=== PATIENT | female | born 1950 | race Caucasian/White ===

== ENCOUNTER → 2021-07-10 | Outpatient (CLI) | payer MEDICARE | LOC: CARD 09:34 | PROVIDERS: ATTEND Family Medicine | DX: I73.9 Peripheral vascular disease, unspecified (principal); I87.2 Venous insufficiency (chronic) (peripheral); S81.801A Unspecified open wound, right lower leg, initial encounter | CPT/HCPCS: 93922; 93925; 93970 ==

== ENCOUNTER 2021-07-19 08:54 | Outpatient (RCR) | payer MEDICARE ==
[~2021-07-19 08:54] MED LIST: LIDOCAINE 2% /EPINEPHRINE 20 ML SDV INJ ONE; LIDOCAINE/PRILOCAINE 2.5-2.5% KIT ONE
== END 2021-07-25 ==
LOC: WCC 08:54
PROVIDERS: ATTEND Family Medicine
DX: I87.312 Chronic venous hypertension (idiopathic) with ulcer of left lower extremity (principal); E11.9 Type 2 diabetes mellitus without complications; L97.821 Non-pressure chronic ulcer of other part of left lower leg limited to breakdown of skin; S81.801A Unspecified open wound, right lower leg, initial encounter; R60.0 Localized edema; I87.2 Venous insufficiency (chronic) (peripheral); N17.9 Acute kidney failure, unspecified; I10 Essential (primary) hypertension; J44.9 Chronic obstructive pulmonary disease, unspecified; E78.5 Hyperlipidemia, unspecified; K42.0 Umbilical hernia with obstruction, without gangrene; B95.1 Streptococcus, group B, as the cause of diseases classified elsewhere; E03.9 Hypothyroidism, unspecified; M13.80 Other specified arthritis, unspecified site
CPT/HCPCS: 11042 ×4; 11045; 87071; 87075; 87205; 99204; 99213 ×3; J2001

== ENCOUNTER 2021-08-02 08:52 | Outpatient (RCR) | payer MEDICARE | END 2021-08-24 | LOC: WCC 08:52 | PROVIDERS: ATTEND Family Medicine | DX: E11.9 Type 2 diabetes mellitus without complications (principal); L97.821 Non-pressure chronic ulcer of other part of left lower leg limited to breakdown of skin; S81.801A Unspecified open wound, right lower leg, initial encounter; I87.2 Venous insufficiency (chronic) (peripheral); I70.248 Atherosclerosis of native arteries of left leg with ulceration of other part of lower leg; R60.0 Localized edema; N17.9 Acute kidney failure, unspecified; I10 Essential (primary) hypertension; J44.9 Chronic obstructive pulmonary disease, unspecified; E78.5 Hyperlipidemia, unspecified; E03.9 Hypothyroidism, unspecified; M13.80 Other specified arthritis, unspecified site; B95.1 Streptococcus, group B, as the cause of diseases classified elsewhere; B96.89 Other specified bacterial agents as the cause of diseases classified elsewhere; K42.0 Umbilical hernia with obstruction, without gangrene ==